=== PATIENT | male | born 1990 | race Caucasian/White ===

== ENCOUNTER 2021-01-07 18:58 | Emergency (ER) | payer OTHER ==
[2021-01-07 19:44] VITALS: BP 139/86; PULSE 105; TEMP 98.3; BMI 32.5
[2021-01-07] MEDS ORDERED: KETOROLAC TROMETHAMINE 30 MG/1 ML VIAL IVPUSH ONE (20:37)
[2021-01-07] MEDS ORDERED: SODIUM CHLORIDE 0.9% 500 ML INFUS.BAG IV ONE (20:37)
[2021-01-07] MEDS ORDERED: KETOROLAC TROMETHAMINE 30 MG/1 ML VIAL ONE (20:42)
[2021-01-07 21:00] LABS: BASO % 1.2 % (0-2.0); EOS % 3.1 % (0-4.5); HEMATOCRIT 46.7 % (35.4-49); LYMPH % 20.8 % (8-40); MCH 30.4 pg (25.7-33.7); MCHC 34.2 g/dl (32.0-35.9); MEAN PLT VOLUME 7.6 fl (7.5-11.1); MONO % 10.7 % (3.8-10.2); NEUT % 64.2 % (42.8-82.8); PLATELET COUNT 230 10^3/uL (134-434); RBC 5.25 M/mm3 (4.00-5.60); RDW 14.4 % (11.9-15.9); WHITE BLOOD COUNT 11.5 K/mm3 (4.0-10.0)
[2021-01-07 21:18] LABS: CHLORIDE 104 mmol/L (98-107); SODIUM 140 mmol/L (136-145)
[2021-01-07 21:20] LABS: CALCIUM 9.1 mg/dL (8.5-10.1)
[2021-01-07 21:21] LABS: ANION GAP 9 MMOL/L (8-16); BLOOD UREA NITROGEN 19.8 mg/dL (7-18); CO2 27 mmol/L (21-32); GLUCOSE,RANDOM 89 mg/dL (74-106)
[2021-01-07 21:24] LABS: CREATININE 1.3 mg/dL (0.55-1.3); SGOT/AST 23 U/L (15-37); SGPT/ALT 61 U/L (13-61)
[2021-01-07 21:26] LABS: BILIRUBIN,TOTAL 0.7 mg/dL (0.2-1); TOT PROT 7.5 g/dl (6.4-8.2)
[2021-01-07 21:27] LABS: ALK PHOS 110 U/L (45-117)
== END 2021-01-07 23:23 | disposition home or self-care (01) ==
LOC: JER 18:58
PROC: 3E0333Z Introduction of Anti-inflammatory into Peripheral Vein, Percutaneous Approach (ICD-10-PCS; principal; 2021-01-07)
DX: R07.89 Other chest pain (principal)
CPT/HCPCS: 36415; 71046-TC-FY; 80053; 84484; 85025; 93005; 93010; 99285-25

== ENCOUNTER 2024-01-10 12:25 | Emergency (ER) | payer OTHER ==
[2024-01-10] MEDS ORDERED: LIDOCAINE 5% TOPICAL PATCH ONE (12:40)
[2024-01-10] MEDS ORDERED: KETOROLAC TROMETHAMINE 30 MG/1 ML VIAL ONE (12:40)
[2024-01-10 12:44] VITALS: BP 133/72; PULSE 74; RESP 16; TEMP 98.2; BMI 34.9
[2024-01-10] MEDS: KETOROLAC TROMETHAMINE 30 MG/1 ML VIAL IVPUSH ONE (13:05)
[2024-01-10] MEDS: LIDOCAINE 5% TOPICAL PATCH TP ONE (13:19)
[2024-01-10 13:30] LABS: HEMATOCRIT 47.9 % (35.4-49); HEMOGLOBIN 16.1 G/dL (11.7-16.9); MCH 29.7 pg (25.7-33.7); MCHC 33.5 g/dl (32.0-35.9); MEAN CELL VOLUME 88.5 fl (80-96); MEAN PLT VOLUME 8.6 fl (7.5-11.1); PLATELET COUNT 210.4 10^3/uL (134-434); RBC 5.41 10^6/uL (4.00-5.60); WHITE BLOOD COUNT 6.9 10^3/uL (4.0-10.8)
[2024-01-10 13:36] LABS: PLATELET ESTIMATE ADEQUATE
[2024-01-10 13:38] LABS: ALBUMIN 4.4 g/dl (3.4-5.0); BILIRUBIN,TOTAL 0.4 mg/dl (0.2-1); CALCIUM 9.8 mg/dl (8.5-10.1); CREATININE 1.1 mg/dl (0.6-1.3); POTASSIUM 4.2 mmol/L (3.5-5.1); TOT PROT 6.8 g/dl (6.4-8.2)
[2024-01-10] MEDS ORDERED: LIDOCAINE PATCH REMOVAL MC ONE (22:00)
== END 2024-01-10 14:28 | disposition home or self-care (01) ==
LOC: FER 12:25
PROC: 3E0333Z Introduction of Anti-inflammatory into Peripheral Vein, Percutaneous Approach (ICD-10-PCS; principal; 2024-01-10)
DX: R07.81 Pleurodynia (principal); X50.0XXA Overexertion from strenuous movement or load, initial encounter; Y99.0 Civilian activity done for income or pay
CPT/HCPCS: 36415; 71045-TC-FY; 80053; 84484; 85027; 93005; 99285-25